=== PATIENT | male | born 2000 | race Caucasian/White ===

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

== ENCOUNTER 2022-03-10 17:08 | Outpatient (REF) | payer OTHER, SELFPAY ==
[2022-03-10 18:40] LABS: HCT 45.7 % (40.0-50.0); HGB 15.2 g/dL (13.5-17.5); MCH 27.6 pg (27.0-33.0); MCHC 33.3 % (32.0-36.0); MCV 83 fL (80-95); MPV 10.8 fL (8.0-11.0); Platelet Count 288 10^3/uL (130-400); RDW 12.1 % (11.8-14.1); RDW-SD 36.9 fL; WBC 6.85 10^3/uL (4.4-10.8)
[2022-03-10 18:44] LABS: ALT 41 U/L (16-63); AST 24 U/L (15-37); Albumin 4.4 g/dL (3.4-5.0); Alkaline Phosphatase 79 U/L (46-116); Anion Gap 4.5 mmol/L (3-11); BUN 11 mg/dL (7-18); Bilirubin, Total 0.4 mg/dL (0.2-1.0); CO2 30.5 mmol/L (21.0-32.0); CREATININE 0.8 mg/dL (0.70-1.30); Calcium 9.4 mg/dL (8.5-10.1); Chloride 105 mmol/L (98-107); Estimated GFR 130.74 (mL/min/1.73m2); Glucose 94 mg/dL (74-106); Lipase 84 U/L (73-393); Potassium 4.1 mmol/L (3.5-5.1); Sodium 140 mmol/L (136-145); Total Protein 7.2 g/dL (6.4-8.2)
== END 2022-03-10 17:09 | disposition home or self-care (01) ==
LOC: NCHCN 17:08
PROVIDERS: Visit Provider Family Medicine
DX: R10.9 Unspecified abdominal pain (principal)
CPT/HCPCS: 80053; 83690; 85027

== ENCOUNTER 2023-02-19 11:09 | Outpatient (REF) | payer OTHER, SELFPAY ==
[2023-02-19 16:47] LABS: HGB 14.8 g/dL (13.5-17.5); MCH 27.6 pg (27.0-33.0); MCHC 33.6 % (32.0-36.0); MCV 82 fL (80-95); MPV 10.8 fL (8.0-11.0); Platelet Count 244 10^3/uL (130-400); RBC 5.37 10^6/uL (4.36-5.78); RDW 12.8 % (11.8-14.1); WBC 5.56 10^3/uL (4.4-10.8)
[2023-02-19 17:03] LABS: ALT 70 U/L (16-63); AST 31 U/L (15-37); Albumin 3.8 g/dL (3.4-5.0); Alkaline Phosphatase 62 U/L (46-116); BUN 11 mg/dL (7-18); Bilirubin, Total 0.3 mg/dL (0.2-1.0); CREATININE 0.9 mg/dL (0.70-1.30); Calcium 9.4 mg/dL (8.5-10.1); Chloride 105 mmol/L (98-107); Estimated GFR 125.39 (mL/min/1.73m2); Glucose 97 mg/dL (74-106); Potassium 4.3 mmol/L (3.5-5.1); Sodium 141 mmol/L (136-145); Total Protein 7.1 g/dL (6.4-8.2)
== END 2023-02-19 11:10 | disposition home or self-care (01) ==
LOC: NCHCN 11:09
PROVIDERS: Visit Provider Family Medicine
DX: K76.0 Fatty (change of) liver, not elsewhere classified (principal)
CPT/HCPCS: 80053; 85027

== ENCOUNTER 2023-02-26 23:49 | Emergency (ER) | payer OTHER, SELFPAY ==
[2023-02-26 23:52] VITALS: BP 171/75; PULSE 99; RESP 18; TEMP 36.6; O2SAT 99
[2023-02-27] MEDS: Mylanta Suspension 30 ML CUP (00:11)
[2023-02-27] MEDS: Lidocaine 2% Viscous 1 ML Solution 15 ML PO (00:11)
--- NOTE | 2023-02-27 00:11 | W.ED.GENAD ---
HPI General Stated Complaint: Abd Prob BENJAMIN: 3 Date/Time Provider Initiated Documentation: 02/27/23 00:01. HPI Narrative: 22-year-old male with a past medical history of Jacobs, suspected clinical reflux and gastritis who has had a relatively benign EGD in the past, who presents today for abdominal pain. Patient states that for the last 2 days he has had a knot and achy-like sensation in the epigastrium. Appears to be slightly positional, improved when he sits upright. He denies any vomiting but does admit to notable nausea. He denies any alcohol intake. He denies any cough, fever, chills or shortness of breath. He denies any hematemesis or diarrhea. He does take omeprazole regularly. He denies any significant Motrin or Tylenol use recently, he denies any significant spicy meals, but does admit to some tomato-based meals. No other complaints at this time. Related Data Home Medications Medication Instructions Recorded Confirmed albuterol sulfate 90 mcg/actuation 2 puff inhalation .COMPLEX PRN 03/14/18 02/26/23 aerosol inhaler exercise induced bronchospasm #8 grams inhalational spacing device #1 ea 03/14/18 07/06/20 (Aerochamber MV spacer) hydroxyzine pamoate 50 mg capsule 50 mg PO QID PRN anxiety #60 caps 03/23/20 02/26/23 omeprazole 40 mg capsule,delayed 40 mg PO DAILY #30 caps 04/05/20 02/26/23 release ondansetron 4 mg disintegrating 4 mg PO Q8H PRN nausea and 05/10/20 02/26/23 tablet vomiting #30 tabs amitriptyline 25 mg tablet 25 mg PO DAILY 02/26/23 02/26/23 famotidine 40 mg tablet 40 mg PO DAILY #30 tabs 02/27/23 sucralfate 1 gram tablet (Carafate) 1 g PO BID #60 tabs 02/27/23 Previous Rx's Medication Instructions Recorded albuterol sulfate 90 mcg/actuation 2 puff inhalation .COMPLEX PRN 03/14/18 aerosol inhaler exercise induced bronchospasm #8 grams inhalational spacing device #1 ea 03/14/18 (Aerochamber MV spacer) hydroxyzine pamoate 50 mg capsule 50 mg PO QID PRN anxiety #60 caps 03/23/20 omeprazole 40 mg capsule,delayed 40 mg PO DAILY #30 caps 04/05/20 release ondansetron 4 mg disintegrating 4 mg PO Q8H PRN nausea and 05/10/20 tablet vomiting #30 tabs famotidine 40 mg tablet 40 mg PO DAILY #30 tabs 02/27/23 sucralfate 1 gram tablet (Carafate) 1 g PO BID #60 tabs 02/27/23 Allergies Allergy/AdvReac Type Severity Reaction Status Date / Time amoxicillin Allergy Intermediate RASH Verified 02/26/23 23:57 Review of Systems All systems reviewed & are unremarkable except as noted in HPI and below PFSH All Active Problems (Updated 02/27/23 @ 01:02 by Jenaro Griffin DO) Stomach irritation (Acute) Non-alcoholic fatty liver disease (Acute) see GI note 07/02 Nausea (Acute) Anxiety (Chronic) Anxiety is secondary to nausea, not the cause 06/24/2020 gi issues, ondansetron and omeprazole also helpful BMI (body mass index), pediatric, > 99% for age (Acute 12/25/16) Coccydynia (Chronic) Seen by [facility]. x-rays and exam normal. Likely will resolve with rest and a cushion to sit on Exercise-induced asthma (Chronic) Eczema (Chronic) Routine child health maintenance (Acute 07/13/14) Medical History (Updated 02/27/23 @ 01:02 by Jenaro Griffin DO) Lactose intolerance (06/29/17) Surgical History Myringotomy w/ PE (pressure equalizing) tubes 02/2004 Family History Mother Asthma Anxiety Father Essential hypertension Grandparent Hyperlipidemia Social History Smoking/Tobacco Use Status: Never Second Hand Exposure: No Smoking risk assessment performed?: Yes Alcohol Intake: never Drug use: Never Adopted: No Foster care: No Education Level: high school Details: [employer] 11th grade Pets and animals: Yes (2 cats) Pets and animals: cat(s) Current gender identity: male Seatbelt use: always Helmet use: Yes Helmet use: always Water heater temp set <120 deg: Yes Fire extinguisher in home: Yes Carbon monox detector in home: Yes Firearms in home: Yes Firearms unloaded and locked: Yes Exam Narrative Exam Narrative: 1.Const: Well-nourished, Well-developed, appearing stated age 2.Eyes: PERRL, no conjunctival injection, and symmetrical lids. 3.ENT: Atraumatic external nose and ears. Moist MM. Neck: Symmetric, trachea midline, No thyromegaly. 4.CVS: +S1/S2, No murmurs or gallops. Peripheral pulses 2+ and equal in all extremities. Brisk capillary refill in all extremities. 5.RESP: Unlabored respiratory effort. Clear to auscultation bilaterally. No wheezes rales or rhonchi 6.GI: Soft, nondistended. No guarding or rebound. Minimal achiness in the epigastric region on palpation. No signs of an acute surgical abdomen. Negative Perdomo sign, no pain at McBurney's point. 7.MSK: Normocephalic/Atraumatic, Extremities w/o deformity or ttp No cyanosis or clubbing, Normal movement of all extremities 8.Skin: Warm, Dry. No rashes or lesions. 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 Sensation grossly intact, no focal neurologic deficits. 10.Psych: (AAO) x3. Appropriate mood and affect Course Vital Signs Vital signs: Vital Signs Temperature 36.6 C 02/26/23 23:52 Pulse 99 H 02/26/23 23:52 Respiratory Rate 18 02/26/23 23:52 Blood Pressure 171/75 H 02/26/23 23:52 Pulse Oximetry 99 02/26/23 23:52 Temperature 36.6 C 02/26/23 23:52 Temperature Source Temporal Artery Scan 02/26/23 23:52 Pulse 99 H 02/26/23 23:52 Respiratory Rate 18 02/26/23 23:52 Blood Pressure 171/75 H 02/26/23 23:52 Blood Pressure Position Sitting 02/26/23 23:52 Pulse Oximetry 99 02/26/23 23:52 Oxygen Delivery Method Room Air 02/26/23 23:52 Oxygen Flow Rate 0 02/26/23 23:52 Pain Level 8 02/26/23 23:52 Medical Decision Making 22-year-old male with a past medical history of Jacobs, suspected clinical reflux and gastritis who has had a relatively benign EGD in the past, who presents today for abdominal pain. Patient states that for the last 2 days he has had a knot and achy-like sensation in the epigastrium. Appears to be slightly positional, improved when he sits upright. He denies any vomiting but does admit to notable nausea. He denies any alcohol intake. He denies any cough, fever, chills or shortness of breath. He denies any hematemesis or diarrhea. He does take omeprazole regularly. He denies any significant Motrin or Tylenol use recently, he denies any significant spicy meals, but does admit to some tomato-based meals. No other complaints at this time. Exam demonstrates well-appearing male, mild epigastric achiness on palpation. No signs of an acute surgical abdomen. Differential is highest for gastric irritation, esophagitis, less likely pancreatitis. Symptoms appear inconsistent with cholecystitis based on clinical exam assessment. Will give GI cocktail, famotidine, Carafate, and Zofran. No indication for emergent imaging at this time based on exam. Will get basic labs to make sure his transaminases are not significantly rising. Will check lipase. 1:11 AM After famotidine, Carafate, Zofran patient is feeling much better. He feels well and feels comfortable going home. Pain has nearly resolved. Symptoms appear consistent with gastric irritation or potential mild esophagitis. Symptoms appear inconsistent with fulminant pancreatitis, cholecystitis, or other life-threatening or surgical etiology. After workup shows no elevated white count, bandemia or left shift. Renal function good. ALT slightly elevated, however this appears to be around baseline for the patient. He is following closely with his primary care provider in regard to this. Urinalysis shows no evidence of infection. Patient stable for discharge. Discussed red flags for which to return. Will give Carafate Zofran and famotidine for home use. Recommended dietary changes. I have extensively reviewed the treatment plan and discharge instructions with the patient and their family. I have addressed all patient concerns at this time. The patient and family was made aware of what symptoms to monitor for that would warrant a return to the emergency department. Discussed the plan with the patient and family, they demonstrate verbal understanding and agreement with our assessment and plan at this time. The documentation in this chart was dictated using [employer] dictation software. Please excuse any dictation errors. Quality:SDOH Health Related Social Needs: No Data to Display Discharge Plan Disposition Patient Disposition: Home Condition: Good Discharge Details Clinical Impression: Stomach irritation ED Provider: Jenaro Griffin Home Meds and New Rx's Prescriptions: New famotidine 40 mg tablet 40 mg PO DAILY Qty: 30 0RF sucralfate [Carafate] 1 gram tablet 1 g PO BID Qty: 60 0RF No Action albuterol sulfate 90 mcg/actuation HFA aerosol inhaler 2 puff IH .COMPLEX PRN (Reason: exercise induced bronchospasm) Qty: 8 0RF Rx Instructions: 2 puff IH 20-30 min prior to exercise PRN; (DME) Aerochamber MV spacer See Dose Instructions .ROUTE .MEDSUPPLY Qty: 1 0RF Dose Instruction: As directed Rx Instructions: As directed hydroxyzine pamoate 50 mg capsule 50 mg PO QID PRN (Reason: anxiety) Qty: 60 3RF Rx Instructions: 1 cap by mouth every 6 hours as needed omeprazole 40 mg capsule,delayed release(DR/EC) 40 mg PO DAILY Qty: 30 6RF ondansetron 4 mg tablet,disintegrating 4 mg PO Q8H PRN (Reason: nausea and vomiting) Qty: 30 2RF Rx Instructions: 1 tab by mouth every 8 hours as needed amitriptyline 25 mg tablet 25 mg PO DAILY Discharge Instructions Instructions: Gastritis (ED) Additional Instructions: At this time. Laboratory workup has returned reassuring. Your liver numbers are still slightly elevated. Please continue to follow closely with your primary care provider. Please avoid any spicy foods, greasy foods, tomato-based products or mint based products. Please take the famotidine and Carafate as prescribed. Is been sent to your pharmacy on file. If you notice any worsening of your symptoms, or any new symptoms such as vomiting, diarrhea, fever, chills, shortness of breath, chest pain, numbness, weakness, or fainting , please return immediately to the emergency department for reevaluation. Please follow up with your primary care provider as soon as possible for reassessment and reevaluation. As always, it was a pleasure participating in your medical care today. Referrals: Rosendo Jenkins [ [facility]] -
[2023-02-27] MEDS: Famotidine 20 MG/2 ML VIAL IVP (00:26)
[2023-02-27] MEDS: Ondansetron 4 MG/2 ML VIAL IVP (00:27)
[2023-02-27] MEDS: Sucralfate 1 GM TAB PO (00:27)
[2023-02-27 00:30] LABS: Abs Immature Grans 0.02 10^3/uL (0.0-0.06); Absolute Basophil Count 0.05 10^3/uL (0.0-0.2); Absolute Eosinophil Count 0.19 10^3/uL (0.0-0.7); Absolute Lymphocyte Count 3.25 10^3/uL (1.2-3.4); Absolute Monocyte Count 0.55 10^3/uL (0.1-0.8); Absolute Neutrophil Count 4.25 10^3/uL (1.2-6.7); Basophils % 0.6; Eosinophils % 2.3; HCT 46.5 % (40.0-50.0); HGB 15.9 g/dL (13.5-17.5); Immature Grans % 0.2; Lymphocytes % 39.1; MCH 27.4 pg (27.0-33.0); MCHC 34.2 % (32.0-36.0); MCV 80 fL (80-95); MPV 10.6 fL (8.0-11.0); Monocytes % 6.6; Neutrophils % 51.2; Platelet Count 308 10^3/uL (130-400); RDW 12.6 % (11.8-14.1); RDW-SD 36.2 fL; WBC 8.31 10^3/uL (4.4-10.8)
[2023-02-27 00:33] LABS: Bilirubin Negative (Negative); Blood Negative (Negative); Clarity Sl Cloudy (Clear); Glucose Negative (Negative); Ketones Negative (Negative); Leukocyte Esterase Negative (Negative); Nitrite Negative (Negative); Urobilinogen 0.2 mg/dL (Up to 0.2); pH 8.5 (5-8)
[2023-02-27 00:53] LABS: ALT 76 U/L (16-63); AST 25 U/L (15-37); Albumin 4.2 g/dL (3.4-5.0); Alkaline Phosphatase 77 U/L (46-116); Anion Gap 9.3 mmol/L (3-11); BUN 12 mg/dL (7-18); Bilirubin, Total 0.2 mg/dL (0.2-1.0); CO2 27.7 mmol/L (21.0-32.0); Calcium 9.2 mg/dL (8.5-10.1); Chloride 101 mmol/L (98-107); Glucose 112 mg/dL (74-106); Lipase 41 U/L (16-77); Potassium 3.7 mmol/L (3.5-5.1); Sodium 138 mmol/L (136-145)
[2023-02-27 01:00] VITALS: BP 152/71; PULSE 89; RESP 16; O2SAT 99
[2023-02-27] MEDS: Ondansetron O.D.T. 4 MG TABEF, 3 TABS/BTL PO (01:06)
== END 2023-02-27 01:07 | disposition home or self-care (01) ==
LOC: ER 02-27 01:15
PROVIDERS: Emergency Provider Student in an Organized Health Care Education/Training Program
DX: K31.89 Other diseases of stomach and duodenum (principal); K75.81 Nonalcoholic steatohepatitis (NASH)
CPT/HCPCS: 36415; 80053; 83690; 96374; 96375; 99283; 81003; 85025; J2405

== ENCOUNTER 2024-06-21 16:39 | Outpatient (REF) | payer OTHER, SELFPAY ==
[2024-06-21 15:33] LABS: Anion Gap 7.4 mmol/L (3-11); BUN 14 mg/dL (7-18); CO2 27.6 mmol/L (21.0-32.0); CREATININE 0.9 mg/dL (0.70-1.30); Calcium 9.4 mg/dL (8.5-10.1); Chloride 105 mmol/L (98-107); Estimated GFR 123.84 (mL/min/1.73m2); Glucose 111 mg/dL (74-106); Potassium 4.1 mmol/L (3.5-5.1); Sodium 140 mmol/L (136-145)
== END 2024-06-21 16:40 | disposition home or self-care (01) ==
LOC: LBN 16:39
PROVIDERS: PCP Nurse Practitioner Family; Visit Provider Nurse Practitioner Family
DX: Z51.81 Encounter for therapeutic drug level monitoring (principal)
CPT/HCPCS: 80048